=== PATIENT | female | born 1980 | race Asian ===

== ENCOUNTER 2019-07-25 08:00 | Inpatient (IN) | payer OTHER | END 2019-07-27 11:00 | disposition home or self-care (01) | LOC: J3W 08:00 ==

== ENCOUNTER 2019-11-25 21:07 | Emergency (ER) | payer OTHER ==
--- NOTE | 2019-11-25 21:12 | PDOC ---
Rapid Medical Evaluation Time Seen by Provider: 11/25/19 21:11 Medical Evaluation: Allergies Allergy/AdvReac Type Severity Reaction Status Date / Time Beef Containing Products Allergy Intermediate Rash Verified 07/25/19 08:38 shrimp Allergy Intermediate Rash Verified 07/25/19 08:38 No Known Drug Allergies Allergy Verified 04/18/13 16:39 11/25/19 21:11 HPI: Vomiting and R flank pain x 4 hours PE: No gross deficits ORDERS: Labs No chance of B BTL 10/04 Discharge Disposition - Diagnosis Abdominal pain - Referrals - Patient Instructions - Post Discharge Activity
[2019-11-25] MEDS ORDERED: KETOROLAC TROMETHAMINE 30 MG/1 ML VIAL IVPUSH ONE (21:13)
[2019-11-25 21:14] VITALS: TEMP 97.5; BMI 22.6
[2019-11-25] MEDS ORDERED: KETOROLAC TROMETHAMINE 30 MG/1 ML VIAL ONE (21:42)
[2019-11-25 21:52] LABS: BASO % 0.2 % (0-2.0); EOS % 0.2 % (0-4.5); HEMOGLOBIN 13.3 GM/dL (10.7-15.3); LYMPH % 7.6 % (8-40); MCH 28.1 pg (25.7-33.7); MCHC 33.3 g/dl (32.0-36.0); MEAN CELL VOLUME 84.4 fl (80-96); MEAN PLT VOLUME 8.6 fl (7.5-11.1); MONO % 1.6 % (3.8-10.2); NEUT % 90.4 % (42.8-82.8); PLATELET COUNT 268 K/MM3 (134-434); RBC 4.74 M/mm3 (3.60-5.2); RDW 13.5 % (11.6-15.6); WHITE BLOOD COUNT 13.3 K/mm3 (4.0-10.0)
[2019-11-25 21:54] LABS: PH,URINE 6.5 (5.0-8.0); URINE APPEARANCE CLOUDY; URINE BILIRUBIN NEGATIVE (NEGATIVE); URINE COLOR YELLOW; URINE GLUCOSE (UA) NEGATIVE (NEGATIVE); URINE KETONE NEGATIVE (NEGATIVE); URINE LEUK ESTERASE NEGATIVE (NEGATIVE); URINE NITRITE NEGATIVE (NEGATIVE); URINE PROTEIN NEGATIVE (NEGATIVE); URINE UROBILINOGEN 0.2 mg/dL (0.2-1.0)
--- NOTE | 2019-11-25 21:57 | PDOC ---
History of Present Illness - General Chief Complaint: Pain Stated Complaint: VOMITING Time Seen by Provider: 11/25/19 21:11 - History of Present Illness Initial Comments: 39F s/p hysterectomy and b/l salpingectomy 07/2019 c/o constant nonradiating RLQ pain and nbnb vomiting since 5pm today. Pain described as similar to her delivery pain. Denies aggrevating or alleviating factors. Denies f/c, cp/sob. No recent travel, new foods, or sick contacts. Last BM earlier today, nonbloody not dark, regular and then loose. NKDA PCP Dr. Abraham Denies tobacco, etoh, drugs Past History - Past Medical History Allergies/Adverse Reactions: Allergies Allergy/AdvReac Type Severity Reaction Status Date / Time Beef Containing Products Allergy Intermediate Rash Verified 11/25/19 21:14 shrimp Allergy Intermediate Rash Verified 11/25/19 21:14 No Known Drug Allergies Allergy Verified 11/25/19 21:14 Home Medications: Ambulatory Orders NK [No Known Home Medication] 11/25/19 Anemia: No Asthma: No Cancer: No Cardiac Disorders: No CVA: No COPD: No CHF: No Dementia: No Diabetes: No GI Disorders: No Disorders: No HTN: No Hypercholesterolemia: No Liver Disease: No Seizures: No Thyroid Disease: No - Psycho Social/Smoking Cessation Hx Smoking History: Never smoked Have you smoked in the past 12 months: No Hx Alcohol Use: No Drug/Substance Use Hx: No Substance Use Type: None Review of Systems - Review of Systems Comments:: CONSTITUTIONAL: Denies F / C HEENT: Denies sore throat, rhinorrhea RESP: Denies SOB CARD: Denies chest pain GI: Endorses vomiting, abdominal pain. Denies N / D, black or bloody stool, inability to tolerate PO : Endorses chronic dysuria since surgery worse when she hasn't drank enough. Denies frequency SKIN: Denies rashes NEURO: Denies numbness, tingling, weakness MSK: Denies flank / back pain *Physical Exam - Vital Signs Last Vital Signs Temp Pulse Resp BP Pulse Ox 97.5 F L 83 18 136/83 99 11/25/19 21:11 11/25/19 21:11 11/25/19 21:11 11/25/19 21:11 11/25/19 21:11 - Physical Exam VITALS: AF VS WNL GEN: NAD, appear older than stated age. AAOx3. HEENT: NC/AT, EOMI, PERRLA. No facial asymmetry. Normal voice. Supple neck w/ FROM. CV: S1/S2, RRR, no m/r/g LUNG: CTAB, no wheezes, crackles, rales, rhonchi. GI: Limited by amount of abdomen pt was willing to expose. Nontender over the affected region, soft, nondistended, +BS, no guarding, no rebound. No masses. Neg CVAT b/l. EXTREMITIES: No obvious deformities of all extremities. SKIN: Warm, dry, no rashes appreciated. PSYCH: Normal mood and affect. NEURO: Moving all extremities ED Treatment Course - LABORATORY CBC & Chemistry Diagram: 11/25/19 21:32 11/25/19 21:32 - ADDITIONAL ORDERS Additional order review: Laboratory Results 11/25/19 21:32 Urine Color Yellow Urine Appearance Cloudy Urine pH 6.5 D Ur Specific [place] 1.019 Urine Protein Negative Urine Glucose (UA) Negative Urine Ketones Negative Urine Blood Negative Urine Nitrite Negative Urine Bilirubin Negative Urine Urobilinogen 0.2 Ur Leukocyte Esterase Negative - Medications Given in the ED: ED Medications Discontinued Medications Generic Name Dose Route Start Last Admin Trade Name Freq PRN Reason Stop Dose Admin Ketorolac Tromethamine 30 mg 11/25/19 21:13 11/25/19 21:44 Toradol Injection - IVPUSH 11/25/19 21:14 30 mg ONCE ONE Administration Medical Decision Making - Medical Decision Making 11/25/19 21:57 39F s/p hysterectomy and b/l salpingectomy 07/2019 c/o nbnb vomiting (since resolved) and constant nonradiating RLQ pain. Nontender exam, no CVAT, VS WNL - RME labs reviewed - Pain ctrl - Fluids 11/25/19 22:27 labs reviewed slight white count with left shift UA neg, no blood 11/25/19 22:35 pain decreasing s/p toradol 11/25/19 23:19 shared decision making with patient and her family - could be gastroenteritis vs very early appendicitis - discussed risk and benefits about CT now - nontender right now - decided against CT, will PO challenge, and DC home w/ strict return precautions 11/25/19 23:37 PO tolerant DC home w/ strict return precautions Discharge - Discharge Information Problems reviewed: Yes Clinical Impression/Diagnosis: Abdominal pain Qualifiers: Abdominal location: right lower quadrant Qualified Code(s): R10.31 - Right lower quadrant pain Condition: Stable Disposition: HOME - Admission No - Follow up/Referral Referrals: Dagoberto Macias MD [Primary Care Provider] - - Patient Discharge Instructions Patient Printed Discharge Instructions: DI for Abdominal Pain-Adult Additional Instructions: Return immediately to the nearest Emergency Department if you experience: - worsening abdominal pain - severe vomiting, inability to eat or drink - fevers - anything that concerns you - Post Discharge Activity
[2019-11-25] MEDS ORDERED: SODIUM CHLORIDE 0.9% 500 ML INFUS.BAG IV ONE (22:05)
[2019-11-25 22:25] LABS: ALBUMIN 3.9 g/dl (3.4-5.0); BILIRUBIN,TOTAL 0.4 mg/dL (0.2-1); BLOOD UREA NITROGEN 15.6 mg/dL (7-18); CREATININE 0.6 mg/dL (0.55-1.3); TOT PROT 7.7 g/dl (6.4-8.2)
--- NOTE | 2019-11-25 23:36 | PDOC ---
Documentation entered by Jorge Kumari SCRIBE, acting as scribe for Elliott Villalobos MD. Elliott Villalobos MD: This documentation has been prepared by the Quoc calix Daniel, SCRIBE, under my direction and personally reviewed by me in its entirety. I confirm that the documentation accurately reflects all work, treatment, procedures, and medical decision making performed by me. Attending Attestation - Resident Resident Name: BrianJuan C - ED Attending Attestation I have performed the following: I have examined & evaluated the patient, The case was reviewed & discussed with the resident, I agree w/resident's findings & plan, Exceptions are as noted - HPI HPI: 11/25/19 22:31 The patient is a year old with a past medical history of hysterectomy and b/l salpingectomy (07/2019) here today for evaluation of right lower quadrant pain. The patient reports that her abdominal pain is localized to the right lower quadrant, constant, and notes associated non bloody non bilious vomiting with the last episode being 1.5 hours ago. She also notes some burning with urination that is worse when she is dehydrated but states that this has been chronic since her salpingectomy. She states that her last bowel movement was today and normal. Patient denies headache, lightheadedness. Denies fever, chills. Denies chest pain, shortness of breath. Denies diarrhea. Allergies: NKDA PCP: Dagoberto Macias - Physicial Exam PE: 11/25/19 23:20 GENERAL: The patient is awake, alert, and fully oriented, Nontoxic - in no acute distress. HEAD: Normocephalic, atraumatic. EYES: extraocular movements intact, sclera anicteric, conjunctiva clear. ENT: Normal voice, Moist mucous membranes. NECK: Normal range of motion, supple LUNGS: Breath sounds equal, clear to auscultation bilaterally. No wheezes, no rhonchi, no rales. HEART: Regular rate and rhythm, normal S1 and S2 without murmur, rub or gallop. ABDOMEN: Soft, nontender, No guarding, no rebound. No CVA tenderness EXTREMITIES: Normal range of motion, no edema. NEUROLOGICAL: No facial assymetry, Normal speech, PSYCH: Normal mood, normal affect. SKIN: Warm, Dry, normal turgor, - Medical Decision Making 11/25/19 22:19 39y M no pmhx presents with hysterectomy, presents wih several hours of RLQ pain that is constant/ non radiating associated with nausea and nbnb vomiing. denies any fever/chills. Pt notes chronic burning onurination since july but nothing new. Ot endoreses some loose non bloody stool earlier today. nontender on exam no cva tendeness Differential for the patient's symptoms includes possible kidney stones, appendicitis, gastroenteritis 11/25/19 23:33 The patient's blood work was reviewed There the patient does have a mild leukocytosis. The patient does not have signs of a hematuria or UTI. The patient's abdomen was reassessed it is soft nontender with no rebound, guarding, negative Rovsing's and negative tenderness at McBurney's. I had an in-depth discussion with the patient as well as her on the on the phone regarding shared decision making of obtaining a CT now as opposed to returning if symptoms got worse. As the patient has no current tenderness a CT is of low yield, however the patient's symptoms may be suggestive of a very early appendicitis -we will have the patient return if the symptoms get worse. The patient's and family are agreeable to this plan. Heart Score/ECG Review - ECG Impressions Comment:: 11/25/19 23:37 Twelve-lead EKG was performed and reviewed by me. There is normal sinus rhythm with a normal rate. Rate of 79 The axis is normal No ST wave changes suggestive of acute ischemia
[2019-11-25 23:42] VITALS: BP 125/63; PULSE 67
--- NOTE | 2019-11-26 08:47 | EKG ---
Test Reason : Blood Pressure : / mmHG Vent. Rate : 079 BPM Atrial Rate : 079 BPM P-R Int : 134 ms QRS Dur : 094 ms QT Int : 388 ms P-R-T Axes : 057 049 031 degrees QTc Int : 444 ms NORMAL SINUS RHYTHM POSSIBLE LEFT ATRIAL ENLARGEMENT BORDERLINE ECG NO PREVIOUS ECGS AVAILABLE Confirmed by JR ROSE MD ([id number]) on 11/26/2019 8:47:10 AM Referred By: Confirmed By:JR ROSE MD
== END 2019-11-25 23:42 | disposition home or self-care (01) ==
LOC: JER 21:07
PROC: 3E0333Z Introduction of Anti-inflammatory into Peripheral Vein, Percutaneous Approach (ICD-10-PCS; principal; 2019-11-25)
DX: R10.31 Right lower quadrant pain (principal); Z90.710 Acquired absence of both cervix and uterus; Z90.79 Acquired absence of other genital organ(s); Z91.018 Allergy to other foods; Z91.013 Allergy to seafood
CPT/HCPCS: 36415; 80053; 81003; 83690; 84703; 85025; 87086; 93005; 93010; 99283-25

== ENCOUNTER 2024-03-27 19:16 | Emergency (ER) | payer BC, OTHER ==
[2024-03-27 19:39] VITALS: RESP 18; BMI 23.6
[2024-03-27] MEDS ORDERED: DEXAMETHASONE SOD PHOSPHATE 10 MG/1 ML VIAL ONE (20:05)
[2024-03-27] MEDS ORDERED: ALBUTEROL SO4 2.5/IPRATROPIUM 0.5 INH SOL 3 ML VIAL.NEB. NEB ONE ×2 (20:05→20:49)
[2024-03-27] MEDS: DEXAMETHASONE SOD PHOSPHATE 10 MG/1 ML VIAL IM ONE (20:17)
[2024-03-27] MEDS: ALBUTEROL SO4 2.5/IPRATROPIUM 0.5 INH SOL 3 ML VIAL.NEB. NEB ONE ×2 (20:17→20:58)
[2024-03-27 20:55] VITALS: BP 137/88; PULSE 115; TEMP 97.8
== END 2024-03-27 21:47 | disposition home or self-care (01) ==
LOC: JER 19:16
PROC: 3E023GC Introduction of Other Therapeutic Substance into Muscle, Percutaneous Approach (ICD-10-PCS; principal; 2024-03-27)
PROC: 3E0F7GC Introduction of Other Therapeutic Substance into Respiratory Tract, Via Natural or Artificial Opening (ICD-10-PCS; 2024-03-27)
PROC: 3E0F7GC Introduction of Other Therapeutic Substance into Respiratory Tract, Via Natural or Artificial Opening (ICD-10-PCS; 2024-03-27)
DX: J45.901 Unspecified asthma with (acute) exacerbation (principal); Z20.822 Contact with and (suspected) exposure to COVID-19
CPT/HCPCS: 0241U-QW; 71046-TC-FY; 99284-25; J1100